=== PATIENT | female | born 1995 | race Caucasian/White ===

== ENCOUNTER 2021-09-06 18:07 | Emergency (ER) | payer OTHER, SELFPAY ==
[2021-09-06 18:32] VITALS: BP 136/80; PULSE 128; RESP 16; TEMP 36.6; O2SAT 99; BMI 25.7
--- NOTE | 2021-09-06 18:41 | DI.RAD.S_ITS ---
PROCEDURE: XR FOREARM LT 2V INDICATIONS: new trauma TECHNIQUE: 2 views of the forearm were acquired. COMPARISON: None. FINDINGS: Bones: No fractures or dislocations. No suspicious bony lesions. Soft tissues: No suspicious soft tissue calcifications or masses. IMPRESSION: Left radius/ulna without evidence for acute fracture or dislocation. If there is persistent clinical concern for occult fracture given adequate mechanism of injury, consider repeat imaging in 10-14 days. Dictated by: Raj Malhotra M.D. on 09/06/2021 at 19:07 Approved by: Raj Malhotra M.D. on 09/06/2021 at 19:08
--- NOTE | 2021-09-06 18:41 | DI.RAD.S_ITS ---
PROCEDURE: XR ELBOW LT MIN 3V INDICATIONS: prior radial head fx, new trauma, avulsion fx? TECHNIQUE: 3 views of the elbow were acquired. COMPARISON: None. FINDINGS: Bones: No fractures or dislocations. No suspicious bony lesions. Soft tissues: No elbow joint effusion. No suspicious soft tissue calcifications. IMPRESSION: Left elbow without acute fracture or dislocation. If there is persistent clinical concern for occult fracture given adequate mechanism of injury, consider repeat imaging in 10-14 days. Dictated by: Raj Malhotra M.D. on 09/06/2021 at 19:02 Approved by: Raj Malhotra M.D. on 09/06/2021 at 19:06
--- NOTE | 2021-09-06 18:44 | ED_ITS ---
HPI - Extremity Injury (Upper) <JIHAN Augustin - Last Filed: 09/06/21 20:02> General Chief Complaint: Extremity Injury, Upper Stated Complaint: Lt. elbow pain/back and neck pain Time Seen by Provider: 09/06/21 18:17 Source: patient Mode of arrival: Ambulatory History of Present Illness HPI narrative: 25-year-old Female type 1 diabetic presents to the emergency department complaining of left elbow left forearm pain after somebody fell on her arm 4 days ago. Patient states that she fractured her left proximal radial head in April 2021 and she has seen Orthopedics for this. She states that she took ibuprofen 800mg this morning, Tylenol today, and a lidocaine patch, she presents with worsening pain and occasional numbness and tingling which goes down her arm from her elbow. Patient denies any open wound or skin changes, states that she was never in a sling or a cast and her radial head fracture was allowed to heal without immobilization. Patient is tearful today, states that her pain has been worsening, she is concerned about arthritis in her elbow. She states that she has arthritis in her back. Patient states that she has a 3-year-old child at home, she had her labs drawn in test on August 03 and it was negative. Review of Systems <JIHAN Augustin - Last Filed: 09/06/21 20:02> Review of Systems Narrative: General: denies fever, chills, malaise, sweats, fatigue Head/Neck: denies headache, neck pain, dizziness Eyes: denies visual changes, eye pain Cardio: denies chest pain, palpitations, edema Respiratory: denies dyspnea, cough, orthopnea GI: denies abdominal pain, nausea, vomiting, or diarrhea : denies dysuria, hematuria, urinary retention, frequency or incontinence MSK: denies joint pain, muscle weakness, left elbow pain, denies any weakness distal to this Skin: denies rash, itching, skin lesions or other Neuro: denies numbness, tingling Patient History <JIHAN Augustin - Last Filed: 09/06/21 20:02> Social History Smoking Status: Never smoker Smoking Status: Never smoker alcohol intake frequency: other Substance Use Type: does not use Exam <REANNA AugustinP - Last Filed: 09/06/21 20:02> Narrative Exam Narrative: Independently reviewed vitals signs and nursing notes. General: Cooperative, comfortable, in no acute distress, well developed and well groomed Head/Neck: Normal visual inspection and supple, atraumatic, no JVD or lymphadenopathy. Normal facial exam Eyes: Pupils equal round and reactive, EOMI, conjunctiva normal, no scleral icterus or injections Nose: External nose normal, nares patent, no rhinorrhea, without purulent drainage Mouth/Throat: uvula midline, moist mucus membranes Cardio: Regular rate and rhythm, no peripheral edema, warm extremities Respiratory: Normal respiratory effort, able to speak in complete sentences without audible wheezing, stridor, or rales. No retractions. ABD: Abdomen is soft and nontender to palpation. There is no guarding or rebound. Bowel sounds are normal in all 4 quadrants. There is no mass or organomegaly. Nontender pelvis, no vaginal discharge per patient report MSK: Moves all extremities, neurovascularly intact, patient wearing a left wrist splint and a left elbow splint from home. Wrist splint was too tight causing her hand to be cold, this was loosened and now her pulses are strong, cap refill less than 2 seconds, no weakness, equal contract management specialist strength, no open wound, no visible edema to the left elbow, no ecchymosis or deformity Skin: Normal capillary refill, no rash Neuro: Normal speech and cognition, normal gait, A&O x3, tone normal, moves all extremities Psych: Mental status is grossly normal, speech is clear, congruent mood, normal affect Initial Vital Signs Initial Vital Signs: Vital Signs Temperature 98 F 09/06/21 18:32 Pulse Rate 128 H 09/06/21 18:32 Respiratory Rate 16 09/06/21 18:32 Blood Pressure 136/80 09/06/21 18:32 Pulse Oximetry 99 09/06/21 18:32 <Jesús Ghotra DO - Last Filed: 09/12/21 18:06> Initial Vital Signs Initial Vital Signs: Vital Signs Temperature 98 F 09/06/21 18:32 Pulse Rate 128 H 09/06/21 18:32 Respiratory Rate 16 09/06/21 18:32 Blood Pressure 136/80 09/06/21 18:32 Pulse Oximetry 99 02/23/22 18:32 Procedures <JIHAN Augustin - Last Filed: 09/06/21 20:02> Orthopedic Splinting/Casting Injury #1: Upper Extremity Injury Location: elbow Post splinting neuro exam: intact and no change Post splinting vascular exam: no change Placed by: Nursing Course <JIHAN Augustin - Last Filed: 09/06/21 20:02> Orders Ordered: Discontinued Medications Acetaminophen (Acetaminophen 325 Mg Tablet) 975 mg PO NOW ONE Stop: 09/06/21 19:32 Last Admin: 09/06/21 19:43 Dose: 975 mg Documented by: FRANDY Hydrocodone Bitart/Acetaminophen (Hydrocodone/Acet 5/325 Tablet) 1 tab PO NOW ONE Stop: 09/06/21 18:42 Last Admin: 09/06/21 19:31 Dose: Not Given Documented by: TRESA Gabapentin (Gabapentin 300 Mg Capsule) 300 mg PO NOW ONE Stop: 09/06/21 18:42 Last Admin: 09/06/21 19:31 Dose: Not Given Documented by: TRESA Meloxicam (Meloxicam 7.5 Mg Tablet) 7.5 mg PO NOW ONE Stop: 09/06/21 18:43 Last Admin: 09/06/21 19:32 Dose: Not Given Documented by: TRESA Vital Signs Vital signs: Vital Signs - 8 hr 09/06/21 18:32 Temperature 98 F Pulse Rate 128 H Respiratory Rate 16 Blood Pressure 136/80 Pulse Oximetry 99 <Jesús Ghotra DO - Last Filed: 09/12/21 18:06> Orders Ordered: Discontinued Medications Acetaminophen (Acetaminophen 325 Mg Tablet) 975 mg PO NOW ONE Stop: 09/06/21 19:32 Last Admin: 09/06/21 19:43 Dose: 975 mg Documented by: FRANDY Hydrocodone Bitart/Acetaminophen (Hydrocodone/Acet 5/325 Tablet) 1 tab PO NOW ONE Stop: 09/06/21 18:42 Last Admin: 09/06/21 19:31 Dose: Not Given Documented by: TRESA Gabapentin (Gabapentin 300 Mg Capsule) 300 mg PO NOW ONE Stop: 09/06/21 18:42 Last Admin: 09/06/21 19:31 Dose: Not Given Documented by: RTESA Meloxicam (Meloxicam 7.5 Mg Tablet) 7.5 mg PO NOW ONE Stop: 09/06/21 18:43 Last Admin: 09/06/21 19:32 Dose: Not Given Documented by: TRESA Vital Signs Vital signs: Vital Signs - 8 hr 09/06/21 18:32 Temperature 98 F Pulse Rate 128 H Respiratory Rate 16 Blood Pressure 136/80 Pulse Oximetry 99 MDM - Extremity Injury (Upper) <Shell Wylie [facility] - Last Filed: 09/06/21 20:02> Lab Data Labs: Lab Results 09/06/21 Range/Units 19:46 HCG, Quant 1447.2 mIU/mL Point of Care Testing Test Results Positive Imaging Data Extremity x-ray #1: Radiologist's Impression: PROCEDURE:? XR FOREARM LT 2V ? INDICATIONS:? new trauma ? TECHNIQUE:? 2 views of the forearm were acquired.? ? COMPARISON:? None. ? FINDINGS:? ? Bones:? No fractures or dislocations.? No suspicious bony lesions.? ? Soft tissues:? No suspicious soft tissue calcifications or masses.? ? ? IMPRESSION:? Left radius/ulna without evidence for acute fracture or dislocation. ? If there is persistent clinical concern for occult fracture given adequate mechanism of injury, consider repeat imaging in 10-14 days. ? ? ? Dictated by: Raj Malhotra M.D. on 09/06/2021 at 19:07 ? ? Approved by: Raj Malhotra M.D. on 09/06/2021 at 19:08 ? Extremity x-ray #2: Radiologist's Impression: PROCEDURE:? XR ELBOW LT MIN 3V ? INDICATIONS:? prior radial head fx, new trauma, avulsion fx? ? TECHNIQUE:? 3 views of the elbow were acquired.? ? COMPARISON:? None. ? FINDINGS:? ? Bones:? No fractures or dislocations.? No suspicious bony lesions.? ? Soft tissues:? No elbow joint effusion.? No suspicious soft tissue calcifications.? ? ? IMPRESSION:? Left elbow without acute fracture or dislocation. ? ? If there is persistent clinical concern for occult fracture given adequate mechanism of injury, consider repeat imaging in 10-14 days. ? ? Dictated by: Raj Malhotra M.D. on 09/06/2021 at 19:02 ? ? Approved by: Raj Malhotra M.D. on 09/06/2021 at 19:06 ? MDM Narrative Medical decision making narrative: 25-year-old female type 1 diabetic who presents to the emergency department with left elbow pain after a person fell on her left arm 4 days ago exacerbating her prior injury of a proximal radial head fracture on the left. Patient has full range of motion, equal contract management specialist strength, equal strength bilaterally, without any open wound, hematoma, edema, deformity, signs of infection . Patient's test was positive, she was not given any of the medications that were initially ordered for this reason. Discussed patient's last menses, she states that she had a test on August 03 which was negative and her last menstrual period was 1 month ago. Patient has a counselor appointment tomorrow, she is surprised about this news, she is , has another child at home but states that her [place] and she does not have any help. Patient was given information on [employer] and family for support groups, patient states that she has this already and it is helpful. Patient was given Tylenol for her pain, given a sling, given a referral to Orthopedics for follow-up and she knows to return to her primary care provider for physical therapy and insurance approval. Recommend close follow-up with her PCP in the next 2 days for another HCG, her hCG level is pending. Differential diagnoses include ligamentous injury involving the ulnar collateral ligament, flexor tendon, avulsion fracture, hematoma, bursitis, overuse injury/tendinitis. Patient is appropriate and amenable to discharge home. Vital signs are stable on repeat examination is unremarkable. Patient has been informed of results. Patient has been given strict return to ER precautions for any new or worsening symptoms. Patient understands to follow up closely with outpatient providers as instructed. Patient understands plan and agrees to discharge home. All questions and concerns answered at this time. <Jesús Ghotra, - Last Filed: 09/12/21 18:06> Lab Data Labs: Lab Results 09/06/21 Range/Units 19:46 HCG, Quant 1447.2 mIU/mL Point of Care Testing Test Results Positive Discharge Plan Departure Patient Disposition: Home Clinical Impression: Elbow sprain Qualifiers: Encounter type: initial encounter Laterality: left Qualified Code(s): S53.402A - Unspecified sprain of left elbow, initial encounter Instructions: DI for Elbow Sprain Activity Restrictions/Additional Instructions: *You have been diagnosed with a left elbow sprain and exacerbation of a prior injury. Please keep your arm in a sling when your up and about. Take Tylenol every 6 hours as needed for your pain, please ice it frequently, and rest. Please have your counseling appointment tomorrow. Please do not hesitate to ask any friends or neighbors for help when you need it. Your test was positive. Please schedule an appointment with your primary care provider Dr. Jurado for follow-up and re checking your hCG level. You said that your last period was August 03. Congratulations, help this is good new, I have given you some support group information. For please give this a try, this may be a helpful way to meet other people in your situation. *What to do: *Please continue to take your regular medications as directed. [x] New medication prescriptions sent to your pharmacy: [ ] New medication written as a paper prescription [ ] No new medications given *Please follow up with your primary care provider in 2-3 days, call for an appointment. Let them know you were seen in the Emergency Department and that we ask that you be seen in follow up. We will electronically transmit a record of today's note if your PCP is in our system *If you do not have a primary care provider please contact the [facility] Resource line at [phone]. They will ask some questions about your medical history and help get you set up with a doctor in the community. *Return to Emergency Department if you should have any new, worsening or concerning symptoms, such as [fever greater than 101F, chills, worsening pain, persistent vomiting or other bothersome symptoms] Referrals: [facility] [Provider Group] Arvind Jurado DO [Primary Care Provider] - <Jesús Ghotra DO - Last Filed: 09/12/21 18:06> Cosign ED Attending Cosignature Attestation: Dr Ghotra Co-Sign Statement: I was available for consultation during this patient's emergency department visit. This chart is signed by myself for administrative purposes only. I did not have direct contact with this patient during this visit. They were seen independently by the APC.
[2021-09-06] MEDS: ACETAMINOPHEN 325 MG TABLET 975 MG PO (19:43)
[2021-09-06 20:11] VITALS: BP 147/74; PULSE 75; RESP 20; O2SAT 99
[2021-09-06 20:25] LABS: HCG Quantitative /Beta subunit 1447.2 mIU/mL
== END 2021-09-06 20:12 | disposition home or self-care (01) ==
PROVIDERS: Emergency Provider Nurse Practitioner Critical Care Medicine; PCP Family Medicine
DX: S53.402A Unspecified sprain of left elbow, initial encounter (principal); W50.0XXA Accidental hit or strike by another person, initial encounter; Z32.01 Encounter for pregnancy test, result positive
CPT/HCPCS: 36415; 73080; 73090; 81025; 84702; 99283